=== PATIENT | female | born 1955 | race Caucasian/White ===

== ENCOUNTER 2021-09-23 21:55 | Emergency (ER) | payer SELFPAY ==
[2021-09-23] MEDS ORDERED: Fluconazole 100 MG Tab PO ONE (22:26)
[2021-09-23] MEDS ORDERED: Nitrofurantoin Monohydrate/Macrocrystalline 100 MG Cap PO ONE (22:26)
[2021-09-23] MEDS ORDERED: Phenazopyridine 100 MG Tab PO ONE (22:36)
== END 2021-09-23 22:45 | disposition home or self-care (01) ==
LOC: KA.ED 21:55
DX: N39.0 Urinary tract infection, site not specified (principal); B37.3 Candidiasis of vulva and vagina; Z88.0 Allergy status to penicillin; Z79.82 Long term (current) use of aspirin
CPT/HCPCS: 81001; 87086; 87088; 99283; A9270

== ENCOUNTER 2022-12-02 07:58 | Emergency (ER) | payer MEDICARE ==
[2022-12-02 08:12] LABS: APPEARANCE,URINE SLIGHTLY CLOUDY (CLEAR); BILIRUBIN,URINE NEGATIVE (NEGATIVE); COLOR,URINE YELLOW (YELLOW); GLUCOSE,URINE NEGATIVE (NEGATIVE); KETONES,URINE NEGATIVE (NEGATIVE); LEUKOCYTE ESTERASE,URINE SMALL (NEGATIVE); NITRITE,URINE NEGATIVE (NEGATIVE); OCCULT BLOOD,URINE LARGE (NEGATIVE); PH,URINE 7.5 (5.0-9.0); PROTEIN,URINE TRACE mg/dL (NEGATIVE); UROBILINOGEN,URINE 0.2 E.U./dL (0.2-1.0)
[2022-12-02 08:18] LABS: EPITHELIAL CELLS,URINE MODERATE /LPF
[2022-12-02 08:19] LABS: BACTERIA,URINE RARE /HPF (NONE TO FEW); RBC,URINE 75-100 /HPF (0-5)
[2022-12-02] MEDS ORDERED: Sulfamethoxazole/Trimethoprim 800-160 MG Tab PO ONE (08:24)
== END 2022-12-02 08:36 | disposition home or self-care (01) ==
LOC: KA.ED 07:58
DX: N30.01 Acute cystitis with hematuria (principal); N34.3 Urethral syndrome, unspecified; Z88.0 Allergy status to penicillin
CPT/HCPCS: 81001; 87086; 87088; 87186; 99283; 99284; A9270-GY